=== PATIENT | female | born 1965 | race African-American/Black ===

== ENCOUNTER 2021-10-03 18:47 | Emergency (ER) | payer MEDICAID, OTHER ==
[~2021-10-03] VITALS: Ht 162.6 cm; Wt 138.0 kg
[2021-10-03 20:37] LABS: EOSINOPHILS % 2.8 % (0.0-5.0); HEMATOCRIT. 39.2 % (36.0-48.0); HEMOGLOBIN. 13.1 g/dL (12.0-16.0); LYMPHOCYTES % 30.6 % (20.0-50.0); MEAN CORPUSCULAR HEMOGLOBIN 27.1 pg (28.0-32.0); MEAN PLATELET VOLUME 8.2 fl (7.4-10.4); MONOCYTES % 9.2 % (2.0-8.0); NEUTROPHILS % 56.4 % (40.0-76.0); PLATELET 289 x1000/uL (130-400); RED BLOOD CELL COUNT 4.84 mill/uL (4.2-5.4); RED CELL DISTRIBUTION WIDTH 16.2 % (11.6-14.6)
[2021-10-03 20:44] LABS: CHLORIDE 107 mEq/L (98-107)
[2021-10-04 01:10] VITALS: BP 140/82
[2021-10-04] MEDS ORDERED: BENZ-16 PO (01:57)
== END 2021-10-04 02:59 | disposition home or self-care (01) ==
LOC: ER 18:47
DX: R05.9 Cough, unspecified (principal); R07.89 Other chest pain
CPT/HCPCS: 36415; 71045; 80053; 83880; 84484; 85025; 93005; 99285

== ENCOUNTER 2023-02-15 14:06 | Emergency (ER) | payer MEDICAID, OTHER ==
[~2023-02-15] VITALS: Ht 162.6 cm; Wt 113.0 kg
[~2023-02-15 14:06] MED LIST: BENZ-16 PO
[2023-02-15 14:12] VITALS: TEMP 98; O2SAT 98
[2023-02-15] MEDS ORDERED: MELO-105 MT (16:18)
[2023-02-15] MEDS ORDERED: CYCL10TA21 MT (16:18)
[2023-02-15 16:26] VITALS: BP 144/72; PULSE 66; RESP 18
[2023-02-15] MEDS ORDERED: KETOROLAC 60MG/2ML VIAL IM ONE (16:30)
== END 2023-02-15 17:03 | disposition home or self-care (01) ==
LOC: ER 14:48
DX: M25.572 Pain in left ankle and joints of left foot (principal); Z86.39 Personal history of other endocrine, nutritional and metabolic disease; Z88.5 Allergy status to narcotic agent; W01.0XXA Fall on same level from slipping, tripping and stumbling without subsequent striking against object, initial encounter; Y93.89 Activity, other specified; Y92.89 Other specified places as the place of occurrence of the external cause; Y99.8 Other external cause status
CPT/HCPCS: 73560; 73610; 96372; 99284; J1885; Z7610 ×2

== ENCOUNTER 2025-01-07 15:17 | Emergency (ER) | payer MEDICAID, OTHER ==
[~2025-01-07] VITALS: Ht 162.6 cm; Wt 126.0 kg
[~2025-01-07 15:17] MED LIST changes: +CYCL10TA21 MT; +MELO-105 MT
[2025-01-07 15:20] VITALS: O2SAT 96
[2025-01-07 15:56] LABS: CLARITY URINE TURBID (CLEAR); COLOR URINE YELLOW (YELLOW); GLUCOSE URINE NEGATIVE (NEGATIVE); KETONES URINE NEGATIVE (NEGATIVE); LEUKOCYTE ESTERASE URINE 3+ (NEGATIVE); NITRITE URINE NEGATIVE (NEGATIVE); OCCULT BLOOD URINE 1+ (NEGATIVE); PH URINE 6.0 (4.5-8.0); PROTEIN URINE TRACE (NEGATIVE); SPECIFIC GRAVITY URINE 1.013 (1.005-1.030); UROBILINOGEN URINE 0.2 E.U./dL (0.2-1.0)
[2025-01-07 16:04] LABS: BACTERIA URINE 2+; SQUAMOUS EPITHELIAL CELL URINE 1+ /lpf (RARE/1+)
[2025-01-07] MEDS: SODIUM CHLORIDE 0.9% 1,000 ML IV ONE (16:15)
[2025-01-07] MEDS: CEFTRIAXONE 1GM/50ML 50 ML IV ONE (16:15)
[2025-01-07 17:42] LABS: BASOPHILS % 1.1 % (0.0-2.0); EOSINOPHILS % 1.0 % (0.0-5.0); HEMATOCRIT. 29.6 % (36.0-48.0); HEMOGLOBIN. 8.2 g/dL (12.0-16.0); LYMPHOCYTES % 24.6 % (20.0-50.0); MEAN PLATELET VOLUME 7.0 fl (7.4-10.4); MONOCYTES % 11.4 % (2.0-8.0); NEUTROPHILS % 61.9 % (40.0-76.0); PLATELET 803 x1000/uL (130-400); RED BLOOD CELL COUNT 4.33 mill/uL (4.2-5.4); RED CELL DISTRIBUTION WIDTH 19.8 % (11.6-14.6)
[2025-01-07 17:52] LABS: ADD RBC MORPHOLOGY YES
[2025-01-07] MEDS ORDERED: CEFP200T13 MT (17:57)
[2025-01-07 17:58] LABS: CREATININE 0.7 mg/dL (0.6-1.0)
[2025-01-07 17:59] LABS: UREA NITROGEN BLOOD 14 mg/dL (9-23)
[2025-01-07 18:00] LABS: ASPARTATE AMINOTRANSFERASE 20 IU/L (<34)
[2025-01-07 18:01] LABS: BILIRUBIN DIRECT < 0.1 mg/dL (<=3.0); BILIRUBIN TOTAL 0.2 mg/dL (0.1-1.0); PROTEIN TOTAL 6.1 g/dL (6.0-8.3)
[2025-01-07 18:10] LABS: PLATELET ESTIMATE INCREASED
[2025-01-07 18:30] VITALS: BP 135/85; PULSE 69; RESP 18; TEMP 36.7; O2SAT 96
== END 2025-01-07 18:59 | disposition home or self-care (01) ==
LOC: ER 15:17
DX: M54.50 Low back pain, unspecified (principal); N39.0 Urinary tract infection, site not specified; Z79.1 Long term (current) use of non-steroidal anti-inflammatories (NSAID); Z88.5 Allergy status to narcotic agent; Z90.49 Acquired absence of other specified parts of digestive tract; Z79.899 Other long term (current) drug therapy
CPT/HCPCS: 80076; 80048; 81003; 83690; 85025; 87086; 87186; 87077; 36415; 74176; 96365; 99285; J0696; J7030; Z7610 ×2